=== PATIENT | female | born 1995 | race American Indian/Alaskan Native ===

== ENCOUNTER → 2024-12-14 16:39 | Outpatient (CLI) | payer MEDICAID, SELFPAY ==
--- NOTE | 2024-12-14 16:51 | DI.CT.S_ITS ---
PROCEDURE: CT ABDOMEN PELVIS WO CON INDICATIONS: RT LOWER QUAD PAIN TECHNIQUE: CT of the abdomen and pelvis was obtained without intravenous contrast. Coronal and sagittal reformats were performed. For radiation dose reduction, the following was used: automated exposure control, adjustment of mA and/or kV according to patient size. COMPARISON: None. FINDINGS: Image quality: Diagnostic. Lower Chest: No significant findings. ABDOMEN: Liver: No contour-deforming mass. Gallbladder: No wall thickening or calcified stones. Biliary ducts: No biliary dilation. Pancreas: No ductal dilation. Spleen: Size is within normal limits. Adrenal Glands: No adrenal nodules. Kidneys and Ureters: No hydronephrosis or nephrolithiasis. No contour deforming mass or perinephric inflammation. Nondilated ureters. Stomach and Bowel: The appendix is minimally enlarged measuring up to 8 mm, contains fluid and demonstrates slight wall hyperemia. There is very subtle inflammation around the appendiceal tip. There is no obstructing radiodensity at the appendiceal origin. Stomach and small bowel loops are normal caliber. Normal quantity of colonic stool. No suspicious colon wall thickening or inflammation. Peritoneum: No abnormal intraperitoneal fluid. No free air. Ventral Wall: No significant hernia. Abdominal Nodes: No retroperitoneal or mesenteric adenopathy by size criteria. Vessels: The abdominal aorta, IVC, and portal vein are of normal caliber. PELVIS: Pelvic Organs: There is a complex right adnexal mass measuring 4.4 cm with mildly hyperdense mural nodularity, potentially hemorrhagic cyst. Minimal surrounding inflammation. Anteverted uterus and CT appearance of left ovarian tissue is otherwise normal. Bladder: Decompressed. Pelvic Nodes: No enlarged lymph nodes. Miscellaneous: No inguinal hernias are seen. Bones: No aggressive osseous abnormality. Degenerative Schmorl's node in L1. Moderate endplate sclerosis at the L4-5 level. IMPRESSION: Findings of possible, mild, early tip appendicitis. No evidence of calcified appendicolith or associated fluid collection. Correlate with clinical picture. Cystic and potentially hemorrhagic versus solid right adnexal mass. Pelvic ultrasound for further characterization is recommended. Dictated by: Lizett Pro M.D. on 12/14/2024 at 18:59 Approved by: Lizett Pro M.D. on 12/14/2024 at 19:05
== END ==
PROVIDERS: Referring Provider Physician Assistant; Visit Provider Physician Assistant
DX: R10.31 Right lower quadrant pain (principal)
CPT/HCPCS: 74176